=== PATIENT | female | born 1935 | race Caucasian/White ===

== ENCOUNTER 2017-01-03 18:11 | Inpatient (IN) | payer MEDICARE ==
[2017-01-03 19:54] VITALS: BP 156/67
[2017-01-03] MEDS ORDERED: Maalox 30 mL Cup PO PRN (20:17)
[2017-01-03] MEDS ORDERED: Magnesium Hydroxide (MOM) 30 mL UDC PO PRN (20:17)
[2017-01-03] MEDS ORDERED: guaiFENesin 200 MG/10 ML UDC PO PRN (20:47)
[2017-01-04] MEDS: Ferrous Sulfate 325 MG TAB PO SCH (06:08)
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
[2017-01-04] MEDS ORDERED: Haloperidol Lactate 5 mg/mL 1mL Vial IM STA ×2 (10:00→10:28)
[2017-01-04] MEDS ORDERED: Haloperidol Lactate 5 mg/mL 1mL Vial ONE (10:00)
[2017-01-04] MEDS ORDERED: Haloperidol Lactate 5 mg/mL 1mL Vial IM ONE (10:24)
[2017-01-04] MEDS: Multivitamin Tab PO SCH (18:15)
[2017-01-04] MEDS: Pantoprazole 40 mg EC Tab PO SCH (18:16)
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
[2017-01-05] MEDS: Ferrous Sulfate 325 MG TAB PO SCH (06:37)
[2017-01-05] MEDS ORDERED: Haloperidol Lactate 5 mg/mL 1mL Vial IM STA (12:29)
[2017-01-05] MEDS: Pantoprazole 40 mg EC Tab PO SCH (12:41)
[2017-01-05] MEDS: Multivitamin Tab PO SCH (12:41)
--- NOTE | 2017-01-06 00:39 | Progress Notes ---
PSYCHIATRIC PROGRESS NOTE TIME PATIENT SEEN: 9:20 a.m. SUBJECTIVE: Staff was spoken to. The patient is interviewed. Mood is noted to be irritable. Affect is constricted. Insight and judgment are noted to be impaired. Impulse control is noted to be poor. The patient is still screaming and yelling. The patient has no insight into her illness. The patient has to be closely monitored and redirected. The patient has to be given a dose of Haldol, Ativan, and Benadryl to contain her behavior. The patient has been refusing to comply with the medications this morning. PLAN: To closely monitor the patient, encouraged the patient to comply with the treatment rather than to act out. JOB# [id number]
[2017-01-06] MEDS: Ferrous Sulfate 325 MG TAB PO SCH (15:56)
[2017-01-06] MEDS: Multivitamin Tab PO SCH (15:58)
[2017-01-06] MEDS: Pantoprazole 40 mg EC Tab PO SCH (15:58)
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
[2017-01-07] MEDS: Ferrous Sulfate 325 MG TAB PO SCH (06:06)
[2017-01-07] MEDS: Pantoprazole 40 mg EC Tab PO SCH (18:59)
[2017-01-07] MEDS: Multivitamin Tab PO SCH (18:59)
--- NOTE | 2017-01-07 20:55 | Progress Notes ---
SUBJECTIVE: The patient was seen, discussed with staff, and chart reviewed. She was lying in her bed quiet. The patient has been refusing care, refusing medications, did not give the reason. The patient appears to be gotten suspicious and paranoid. The patient is oriented to person, knew she was in the hospital, knew her age, and knew the month and year. The patient, however, still has poor insight into her issues and when asked if she was feeling depressed, she states she is not sure. The patient continues to be assistive for treatment. ASSESSMENT: The patient continues to require hospitalization. PLAN: Continue supportive measures. Encourage the patient to comply with treatment. We will monitor closely. [facility]# [id number]
[2017-01-08] MEDS: Ferrous Sulfate 325 MG TAB PO SCH (06:10)
[2017-01-08] MEDS: Pantoprazole 40 mg EC Tab PO SCH (09:29)
[2017-01-08] MEDS: Multivitamin Tab PO SCH (09:35)
--- NOTE | 2017-01-09 05:34 | Progress Notes ---
The patient is seen on inpatient. The patient is on trial medications for psychosis, manifested by agitation and paranoia. She is showing some improvement today. She has been calmer and redirectable. She complains of depressed and altered mood at times. She continue medications, but she is on trial medications for depression and paranoia. She denies side effects including EPS and tardive dyskinesia. Appetite is improving. Energy is low. She is still isolative, fearful, and confused and continues with observation. JOB# [id number]
[2017-01-09] MEDS: Ferrous Sulfate 325 MG TAB PO SCH (06:21)
[2017-01-09] MEDS: Pantoprazole 40 mg EC Tab PO SCH (09:09)
[2017-01-09] MEDS: Multivitamin Tab PO SCH (09:10)
--- NOTE | 2017-01-10 05:09 | Progress Notes ---
The patient is seen in inpatient unit. She is on trial medications for depression, anxiety, and psychosis. She does feel medicine is helping control her symptoms. She has decreasing lability and paranoia. She has been eating better, taking medications, no side effects, no EPS or tardive dyskinesia, no sedation. Monitoring her medical condition, she is on amlodipine for hypertension. Monitoring her appetite and energy. Vital signs are stable, blood pressure 126/63, she is afebrile, 98. My plan is to continue working with her on compliance, monitoring appetite, energy, neurologic status. Discharge when safe to do so, when able to contract for safety. JOB# [id number]
[2017-01-10] MEDS: Ferrous Sulfate 325 MG TAB PO SCH (06:54)
[2017-01-10] MEDS: Multivitamin Tab PO SCH (09:43)
[2017-01-10] MEDS: Pantoprazole 40 mg EC Tab PO SCH (09:44)
--- NOTE | 2017-01-17 00:50 | Discharge Summary ---
ADMITTING DIAGNOSIS: Schizophrenia. REASON FOR ADMISSION: 7740. HISTORY OF PRESENT ILLNESS: The patient remained on hold status for grave disability, extreme paranoia, delusional content, following out commands. TREATMENT COURSE: MEDICAL: The patient has no new medical problems or laboratory abnormalities. She has history of GI bleeding, DVT, and was stabilized. PSYCHIATRIC: The patient was treated with medications for acute psychosis, on trial of Depakote for mood stabilization, trial of Risperdal for severe psychosis. She tolerated the medications well. She had no side effects. She showed improvement in her symptoms of anxiety and psychosis. She had improvement in her ADLs and coping skills. At the time of discharge, she was significantly improved. She did agree to contract for safety. DIFFERENTIAL DIAGNOSIS: Psychosis, not otherwise specified. PLAN: To admit to a long-term care facility for continuing stabilization. JOB# [id number]
== END 2017-01-10 16:50 | DRG 885 ==
LOC: GERO 18:11
PROVIDERS: ADMIT Psychiatry & Neurology Psychiatry; ATTEND Psychiatry & Neurology Psychiatry
DX: F25.9 Schizoaffective disorder, unspecified (principal); F03.90 Unspecified dementia, unspecified severity, without behavioral disturbance, psychotic disturbance, mood disturbance, and anxiety; D64.9 Anemia, unspecified; F29 Unspecified psychosis not due to a substance or known physiological condition; E55.9 Vitamin D deficiency, unspecified; F41.9 Anxiety disorder, unspecified; I10 Essential (primary) hypertension; Z86.718 Personal history of other venous thrombosis and embolism; Z88.8 Allergy status to other drugs, medicaments and biological substances; Z91.012 Allergy to eggs; Z91.040 Latex allergy status
CPT/HCPCS: J1200; J1630; Z7610